=== PATIENT | male | born 1980 | race African-American/Black ===

== ENCOUNTER 2018-04-06 09:52 | Emergency (ER) | payer OTHER | END 2018-04-06 10:37 | disposition home or self-care (01) | LOC: FTE 09:52 | DX: H10.9 Unspecified conjunctivitis (principal) | CPT/HCPCS: 99283; Z7502 ==

== ENCOUNTER 2018-12-20 15:16 | Emergency (ER) | payer OTHER ==
[2018-12-20] MEDS: KETOROLAC 30 MG INJ IM (17:38)
== END 2018-12-20 18:49 | disposition home or self-care (01) ==
LOC: FTE 18:49
DX: J18.9 Pneumonia, unspecified organism (principal)
CPT/HCPCS: 71046; 96372; 99284-25

== ENCOUNTER 2019-01-08 13:02 | Emergency (ER) | payer OTHER ==
[2019-01-08] MEDS: ALBUTEROL/IPRATROPIUM (NEB) 3 ML AMP HHN (16:42)
[2019-01-08] MEDS: ACETAMINOPHEN 500 MG TAB PO (16:47)
[2019-01-08] MEDS: predniSONE 20 MG TAB PO (16:47)
== END 2019-01-08 17:48 | disposition home or self-care (01) ==
LOC: FTE 13:02
DX: J45.901 Unspecified asthma with (acute) exacerbation (principal)
CPT/HCPCS: 71046; 94664; 99283-25

== ENCOUNTER 2019-03-25 02:44 | Emergency (ER) | payer OTHER ==
[2019-03-25] MEDS ORDERED: SOD CHLORIDE 0.9% 500 ML IV (03:24)
[2019-03-25 06:00] LABS: ADD MAN DIFF? NO
[2019-03-25 06:13] LABS: BASOPHILS % 0.5 % (0.0-2.0); EOSINOPHILS # 0.4 10^3/ul (0.0-0.5); EOSINOPHILS % 6.1 % (0.0-7.0); HEMATOCRIT 32.6 % (42.0-52.0); HEMOGLOBIN 10.6 g/dl (14.0-18.0); LYMPHOCYTES # 3.1 10^3/ul (0.8-2.9); LYMPHOCYTES % 47.7 % (15.0-51.0); MEAN CORPUSCULAR HEMOGLOBIN 30.1 pg (29.0-33.0); MEAN CORPUSCULAR HGB CONC 32.5 g/dl (32.0-37.0); MEAN CORPUSCULAR VOLUME 92.6 fl (82.0-101.0); MEAN PLATELET VOLUME 8.8 fl (7.4-10.4); MONOCYTE # 0.7 10^3/ul (0.3-0.9); NEUTROPHIL # 2.2 10^3/ul (1.6-7.5); NEUTROPHILS % 34.5 % (39.0-77.0); PLATELET COUNT 236 10^3/UL (140-415); RED BLOOD COUNT 3.52 10^6/ul (4.70-6.10); RED CELL DISTRIBUTION WIDTH 15.4 % (11.5-14.5)
[2019-03-25 06:13] LABS: WHITE BLOOD COUNT 6.4 10^3/ul (4.8-10.8)
[2019-03-25 06:21] LABS: INR 1.11; PROTIME 14.4 Sec (11.9-14.9); PT RATIO 1.1
[2019-03-25 06:22] LABS: PARTIAL THROMBOPLASTIN TIME 30.8 Sec (23.0-35.0)
[2019-03-25 06:44] LABS: ALANINE AMINOTRANSFERASE 9 IU/L (13-69); ALBUMIN 3.3 g/dl (3.3-4.9); ALBUMIN/GLOBULIN RATIO 0.55; ALKALINE PHOSPHATASE 78 IU/L (42-121); ANION GAP 6 (5-13); ASPARTATE AMINO TRANSFERASE 30 IU/L (15-46); BILIRUBIN,INDIRECT 0.3 mg/dl (0-1.1); BILIRUBIN,TOTAL 0.3 mg/dl (0.2-1.3); BLOOD UREA NITROGEN 15 mg/dl (7-20); CALCIUM 8.6 mg/dl (8.4-10.2); CARBON DIOXIDE 29 mmol/L (21-31); CHLORIDE 105 mmol/L (97-110); CREATININE 1.19 mg/dl (0.61-1.24); Estimated GFR > 60 mL/min (>60); GLUCOSE 130 mg/dl (70-220); POTASSIUM 3.9 mmol/L (3.5-5.1); SODIUM 140 mmol/L (135-144); TOTAL PROTEIN 9.2 g/dl (6.1-8.1)
== END 2019-03-25 07:11 | disposition home or self-care (01) ==
LOC: E/R 02:44
DX: K64.9 Unspecified hemorrhoids (principal)
CPT/HCPCS: 80053; 85025; 85610; 85730; 99283

== ENCOUNTER 2019-03-30 19:21 | Emergency (ER) | payer OTHER ==
[2019-03-30] MEDS: LIDOCAINE 1% (MPF) 5 ML VIAL INFIL (20:30)
[2019-03-30] MEDS: IBUPROFEN 600 MG TAB PO (20:30)
== END 2019-03-30 22:55 | disposition home or self-care (01) ==
LOC: FTE 19:21
DX: L02.31 Cutaneous abscess of buttock (principal)
CPT/HCPCS: 10060; 99283-25